=== PATIENT | female | born 1995 | race Caucasian/White ===

== ENCOUNTER 2019-06-29 23:44 | Emergency (ER) | payer OTHER ==
[~2019-06-29] VITALS: Ht 162.5 cm; Wt 54.4 kg
[~2019-06-29 23:44] MED LIST: MACROBID100 M1 PO; PRENATAL1 TA3 PO
[2019-06-30 00:59] LABS: BASO % 0.2 % (0.0-1.0); EOS % 0.2 % (1.0-4.0); HEMATOCRIT 43.9 % (37.0-47.0); HEMOGLOBIN 15.2 g/dl (12.0-16.0); LYMPH # 1.1 10*3/uL (1.3-4.4); LYMPH % 24.9 % (27.0-41.0); MEAN CORPUSCULAR HGB 30.5 pg (27.0-31.0); MEAN CORPUSCULAR HGB CONC 34.6 g/dl (33.0-37.0); MEAN PLATELET VOLUME 10.8 fl (9.6-12.3); MONO # 0.3 10*3/uL (0.1-1.0); NEUT # 2.8 10*3/uL (2.3-7.9); NEUT % 66.5 % (47.0-73.0); PLATELET COUNT AUTOMATED 150 10*3/uL (130-400); RED BLOOD COUNT 4.99 10*6/uL (4.10-5.10); RED CELL DISTRI WIDTH 11.6 % (0-14.5); WHITE BLOOD COUNT 4.3 10*3/uL (4.8-10.8)
[2019-06-30 01:14] LABS: ALBUMIN 4.1 gm/dl (3.1-4.5); ALKALINE PHOSPHATASE 95 U/L (45-117); BUN 9 mg/dl (7-24); CHLORIDE 103 mmol/L (98-107); CREATININE 0.74 mg/dL (0.55-1.02); POTASSIUM 3.5 mmol/L (3.5-5.1); SGOT/AST 16 IU/L (3-35); SGPT/ALT 19 U/L (12-78); SODIUM 137 mmol/L (136-145); TOTAL PROTEIN 8.2 gm/dL (6.4-8.2)
[2019-06-30] MEDS ORDERED: PREDNISONE20 M1 PO (01:35)
[2019-06-30] MEDS ORDERED: ZITHROMAX250 MG PO (01:35)
[2019-06-30] MEDS ORDERED: PROAIR HFA8.5 GM INH (01:57)
== END 2019-06-30 02:10 | disposition home or self-care (01) ==
LOC: ED 23:44
PROVIDERS: Nurse Practitioner
DX: J12.9 Viral pneumonia, unspecified (principal); Z79.899 Other long term (current) drug therapy

== ENCOUNTER 2019-09-09 11:49 | Emergency (ER) | payer OTHER ==
[~2019-09-09 11:49] MED LIST changes: +PREDNISONE20 M1 PO; +PROAIR HFA8.5 GM INH; +ZITHROMAX250 MG PO
[2019-09-09] MEDS ORDERED: AMOXICILLIN500 M3 PO (12:14)
== END 2019-09-09 12:12 | disposition home or self-care (01) ==
LOC: ED 11:49
DX: H66.91 Otitis media, unspecified, right ear (principal); J02.9 Acute pharyngitis, unspecified; Z79.899 Other long term (current) drug therapy

== ENCOUNTER 2020-01-16 15:13 | Emergency (ER) | payer OTHER ==
[~2020-01-16] VITALS: Wt 54.4 kg
[~2020-01-16 15:13] MED LIST changes: -CEPHALEXIN500 M1 PO
[2020-01-16 16:22] LABS: BILIRUBIN NEGATIVE; BLOOD 3+ (NEGATIVE); CLARITY CLOUDY (CLEAR); COLOR YELLOW (YELLOW); GLUCOSE NEGATIVE; KETONE 1+; LEUKO ESTERASE 2+ (NEGATIVE); NITRITE NEGATIVE (NEGATIVE)
[2020-01-16 16:29] LABS: BACTERIA 2+; EPITHELIAL CELLS TNTC; RBC 0-2 rbc/hpf (0-2); WBC TNTC wbc/hpf (0-5)
[2020-01-16] MEDS ORDERED: CEPHALEXIN500 M1 PO (17:32)
== END 2020-01-16 17:34 | disposition home or self-care (01) ==
LOC: ED 15:13
PROVIDERS: Nurse Practitioner Family
DX: O23.41 Unspecified infection of urinary tract in pregnancy, first trimester (principal); O46.91 Antepartum hemorrhage, unspecified, first trimester; Z3A.08 8 weeks gestation of pregnancy

== ENCOUNTER → 2020-01-16 | Outpatient (CLI) | payer OTHER ==
[~2020-01-16] MED LIST changes: +AMOXICILLIN500 M3 PO; +CEPHALEXIN500 M1 PO
== END | disposition home or self-care (01) ==
LOC: LAB 13:39
PROVIDERS: ATTEND Nurse Practitioner Women's Health
DX: N93.9 Abnormal uterine and vaginal bleeding, unspecified (principal)

== ENCOUNTER 2022-08-01 13:09 | Emergency (ER) | payer OTHER ==
[~2022-08-01] VITALS: Ht 162.5 cm; Wt 54.4 kg
[~2022-08-01 13:09] MED LIST changes: +CEPHALEXIN500 M1 PO
[2022-08-01 15:48] LABS: BASO % 0.4 % (0.0-1.0); EOS # 0.1 10*3/uL (0.0-0.4); EOS % 1.1 % (1.0-4.0); HEMATOCRIT 42.1 % (37.0-47.0); LYMPH # 1.6 10*3/uL (1.3-4.4); MEAN CELL VOLUME 88.3 fl (81.0-99.0); MEAN CORPUSCULAR HGB 30.2 pg (27.0-31.0); MEAN CORPUSCULAR HGB CONC 34.2 g/dl (33.0-37.0); MEAN PLATELET VOLUME 10.3 fl (9.6-12.3); MONO # 0.2 10*3/uL (0.1-1.0); MONO % 4.8 % (3.0-9.0); NEUT # 2.8 10*3/uL (2.3-7.9); NEUT % 59.5 % (47.0-73.0); PLATELET COUNT AUTOMATED 157 10*3/uL (130-400); RED BLOOD COUNT 4.77 10*6/uL (4.10-5.10); RED CELL DISTRI WIDTH 11.9 % (0-14.5); WHITE BLOOD COUNT 4.8 10*3/uL (4.8-10.8)
[2022-08-01 16:15] LABS: ALKALINE PHOSPHATASE 54 U/L (46-116); BUN 7 mg/dl (9-23); CHLORIDE 104 mmol/L (98-107); POTASSIUM 3.6 mmol/L (3.4-5.1); TOTAL PROTEIN 6.5 gm/dL (6.0-8.0)
[2022-08-01 16:17] LABS: SGPT/ALT < 7 U/L (10-49)
[2022-08-01 16:47] LABS: B-hCG (QUALITATIVE) NEGATIVE (NEGATIVE)
== END 2022-08-01 18:43 | disposition home or self-care (01) ==
LOC: ED 13:09
PROVIDERS: Physician Assistant
DX: R51.9 Headache, unspecified (principal)